=== PATIENT | female | born 1980 | race Native Hawaiian/Other Pacific Islander ===

== ENCOUNTER 2016-09-27 19:39 | Emergency (ER) | payer BC ==
[~2016-09-27] VITALS: Ht 170.2 cm; Wt 77.1 kg
[2016-09-27 20:00] VITALS: TEMP 98.3
[2016-09-27] MEDS ORDERED: ADDERALL20 MG PO (20:02)
[2016-09-27 20:54] VITALS: BP 122/79
== END 2016-09-27 20:54 | disposition home or self-care (01) ==
LOC: ED 19:39
DX: S76.112A Strain of left quadriceps muscle, fascia and tendon, initial encounter (principal); Y93.A9 Activity, other involving cardiorespiratory exercise
CPT/HCPCS: 99282

== ENCOUNTER 2016-09-28 21:09 | Outpatient (CLI) | payer BC ==
[~2016-09-28 21:09] MED LIST: ADDERALL20 MG PO
== END 2016-09-28 21:50 | disposition home or self-care (01) ==
LOC: RAD 21:09
DX: R10.32 Left lower quadrant pain (principal)

== ENCOUNTER 2020-04-24 06:28 | Emergency (ER) | payer BC ==
[~2020-04-24] VITALS: Ht 167.6 cm; Wt 81.6 kg
[2020-04-24 06:36] VITALS: TEMP 98.6
[2020-04-24 07:08] LABS: POTASSIUM 4.4 mmol/L (3.6-5.2)
[2020-04-24 07:18] LABS: PLATELET COUNT 234 K/uL (152-353)
[2020-04-24 09:19] VITALS: BP 132/82
== END 2020-04-24 09:19 | disposition home or self-care (01) ==
LOC: ED 06:28
PROVIDERS: Hospitalist
DX: N12 Tubulo-interstitial nephritis, not specified as acute or chronic (principal); N23 Unspecified renal colic
CPT/HCPCS: 36415; 80053; 81000; 81025; 83690; 85027; 87077; 87086; 87088; 87186; 96360; 96365; 96366; 96375; 99284; J1170; J1885; J1956; J2405

== ENCOUNTER 2021-04-22 10:07 | Outpatient (CLI) | payer BC | END 2021-04-22 21:04 | disposition home or self-care (01) | LOC: US 10:07 | PROVIDERS: ATTEND Nurse Practitioner Primary Care | DX: R10.11 Right upper quadrant pain (principal) ==

== ENCOUNTER 2021-06-01 08:59 | Outpatient (CLI) | payer BC ==
[~2021-06-01] VITALS: Ht 170.2 cm; Wt 89.8 kg
== END 2021-06-01 18:52 | disposition home or self-care (01) ==
LOC: INF 08:59
PROVIDERS: ATTEND Internal Medicine
DX: D50.9 Iron deficiency anemia, unspecified (principal)
CPT/HCPCS: 96365; J1756

== ENCOUNTER 2021-06-03 09:01 | Outpatient (CLI) | payer BC ==
[~2021-06-03] VITALS: Ht 170.2 cm; Wt 89.8 kg
[2021-06-03 09:06] VITALS: BP 126/79; TEMP 98.8
[2021-06-03 10:05] VITALS: BP 122/71; TEMP 98.7
== END 2021-06-03 19:09 | disposition home or self-care (01) ==
LOC: INF 09:01
PROVIDERS: ATTEND Internal Medicine
DX: D50.9 Iron deficiency anemia, unspecified (principal)
CPT/HCPCS: 96365; J1756

== ENCOUNTER 2021-06-04 09:04 | Outpatient (CLI) | payer BC ==
[~2021-06-04] VITALS: Ht 170.2 cm; Wt 89.8 kg
[2021-06-04 09:16] VITALS: BP 124/80; TEMP 98.9
== END 2021-06-04 20:26 | disposition home or self-care (01) ==
LOC: INF 09:04
PROVIDERS: ATTEND Internal Medicine
DX: D50.9 Iron deficiency anemia, unspecified (principal)
CPT/HCPCS: J1756

== ENCOUNTER 2021-06-07 09:04 | Outpatient (CLI) | payer BC ==
[~2021-06-07] VITALS: Ht 171.4 cm; Wt 89.8 kg
== END 2021-06-07 20:44 | disposition home or self-care (01) ==
LOC: INF 09:04
PROVIDERS: ATTEND Internal Medicine
DX: D50.9 Iron deficiency anemia, unspecified (principal)
CPT/HCPCS: 96365; J1756

== ENCOUNTER 2021-10-11 14:58 | Emergency (ER) | payer BC ==
[~2021-10-11] VITALS: Ht 171.4 cm; Wt 90.7 kg
[2021-10-11 15:14] VITALS: BP 147/91; TEMP 99.1
== END 2021-10-11 16:11 | disposition home or self-care (01) ==
LOC: ED 14:58
DX: L25.9 Unspecified contact dermatitis, unspecified cause (principal); Z98.890 Other specified postprocedural states
CPT/HCPCS: 99281

== ENCOUNTER 2021-10-21 08:12 | Outpatient (CLI) | payer BC | END 2021-10-21 20:54 | disposition home or self-care (01) | LOC: NM 08:12 | PROVIDERS: ATTEND Nurse Practitioner Family | DX: R10.11 Right upper quadrant pain (principal) | CPT/HCPCS: A9537 ==

== ENCOUNTER 2022-01-24 23:12 | Emergency (ER) | payer BC ==
[~2022-01-24] VITALS: Ht 171.4 cm; Wt 90.7 kg
[2022-01-24 23:17] VITALS: TEMP 98.2
[2022-01-25 01:40] VITALS: BP 146/88
== END 2022-01-25 01:40 | disposition home or self-care (01) ==
LOC: ED 23:12
PROC: 0HQGXZZ Repair Left Hand Skin, External Approach (ICD-10-PCS; principal; 2022-01-24)
PROC: 0HQFXZZ Repair Right Hand Skin, External Approach (ICD-10-PCS; 2022-01-24)
PROC: 0HBQXZZ Excision of Finger Nail, External Approach (ICD-10-PCS; 2022-01-24)
DX: S62.666A Nondisplaced fracture of distal phalanx of right little finger, initial encounter for closed fracture (principal); S61.412A Laceration without foreign body of left hand, initial encounter; S61.411A Laceration without foreign body of right hand, initial encounter; S61.316A Laceration without foreign body of right little finger with damage to nail, initial encounter; S61.212A Laceration without foreign body of right middle finger without damage to nail, initial encounter; W54.0XXA Bitten by dog, initial encounter; Y92.89 Other specified places as the place of occurrence of the external cause
CPT/HCPCS: 90471; 90715; 99283; J2001

== ENCOUNTER 2022-02-04 12:49 | Emergency (ER) | payer BC ==
[~2022-02-04] VITALS: Ht 167.6 cm; Wt 90.7 kg
[2022-02-04 12:57] VITALS: BP 108/67; TEMP 99.1
== END 2022-02-04 13:35 | disposition home or self-care (01) ==
LOC: ED 12:49
DX: Z48.02 Encounter for removal of sutures (principal)